=== PATIENT | female | born 2000 | race Caucasian/White ===

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

== ENCOUNTER → 2021-04-11 | Outpatient (CLI) | payer OTHER | LOC: LAB 14:08 | DX: Z20.822 Contact with and (suspected) exposure to COVID-19 (principal) ==

== ENCOUNTER → 2021-08-26 | Outpatient (CLI) | payer OTHER ==
[2021-08-26 14:39] LABS: POTASSIUM 3.6 mmol/L (3.5-5.1)
[2021-08-26 14:41] LABS: CALCIUM 8.8 mg/dL (8.3-10.5)
== END ==
LOC: LAB 14:18
PROVIDERS: Nurse Practitioner
DX: G93.2 Benign intracranial hypertension (principal)

== ENCOUNTER → 2022-03-25 | Outpatient (CLI) | payer OTHER ==
[2022-03-25 16:29] LABS: ALBUMIN 3.9 g/dL (3.5-5.0); POTASSIUM 3.5 mmol/L (3.5-5.1)
[2022-03-25 16:30] LABS: CALCIUM 8.8 mg/dL (8.3-10.5)
[2022-03-25 16:32] LABS: TOTAL PROTEIN 5.9 g/dL (6.4-8.3)
[2022-03-25 16:33] LABS: TOTAL BILIRUBIN 0.3 mg/dL (0.2-1.2)
[2022-03-25 16:37] LABS: DIRECT BILIRUBIN 0.1 mg/dL (0.0-0.5)
== END ==
LOC: LAB 15:48
PROVIDERS: Physician Assistant
DX: G93.2 Benign intracranial hypertension (principal); Z79.899 Other long term (current) drug therapy

== ENCOUNTER → 2022-07-12 | Outpatient (CLI) | payer OTHER ==
[2022-07-12 10:17] LABS: ALBUMIN 4.1 g/dL (3.5-5.0)
[2022-07-12 10:20] LABS: TOTAL PROTEIN 6.6 g/dL (6.4-8.3)
[2022-07-12 10:21] LABS: TOTAL BILIRUBIN 0.4 mg/dL (0.2-1.2)
[2022-07-12 10:25] LABS: DIRECT BILIRUBIN 0.1 mg/dL (0.0-0.5)
== END ==
LOC: LAB 09:51
PROVIDERS: Physician Assistant
DX: Z79.899 Other long term (current) drug therapy (principal)

== ENCOUNTER → 2022-08-21 | Outpatient (CLI) | payer OTHER | LOC: LAB 16:05 | DX: Z79.899 Other long term (current) drug therapy (principal) ==